=== PATIENT | female | born 1945 | race Caucasian/White ===

== ENCOUNTER 2017-06-24 14:24 | Emergency (ER) | payer MEDICARE, OTHER ==
[~2017-06-24] VITALS: Ht 162.6 cm; Wt 95.3 kg
[2017-06-24] MEDS ORDERED: ALBUTEROL SULF 0.083% NEB SOLN 3 ML NEB NEB STA (15:05)
[2017-06-24] MEDS ORDERED: PRADAXA75 MG (15:12)
[2017-06-24] MEDS ORDERED: AMBIEN10 MG PO (15:12)
[2017-06-24] MEDS ORDERED: AMIODARONE HCL200 MG (15:12)
[2017-06-24] MEDS ORDERED: FLOVENT HFA12 G1 IH (15:13)
[2017-06-24] MEDS ORDERED: LASIX40 MG PO (15:14)
[2017-06-24] MEDS ORDERED: LEXAPRO10 MG PO (15:14)
[2017-06-24] MEDS ORDERED: LOTENSIN20 MG (15:15)
[2017-06-24] MEDS ORDERED: LIPITOR20 MG (15:15)
[2017-06-24] MEDS ORDERED: ACETAMINOPHEN 325 MG TAB PO ONE (15:15)
[2017-06-24] MEDS ORDERED: MELATONIN3 M1 (15:22)
[2017-06-24] MEDS ORDERED: KLOR-CON M2020 MEQ (15:24)
[2017-06-24] MEDS ORDERED: METOLAZONE5 MG PO (15:24)
[2017-06-24] MEDS ORDERED: NEXIUM40 MG (15:26)
[2017-06-24] MEDS ORDERED: BENADRYL25 M1 (15:27)
[2017-06-24] MEDS ORDERED: SODIUM CHLORIDE 0.9% 500ML 500 ML IV ONE (15:30)
[2017-06-24] MEDS ORDERED: SODIUM CHLORIDE 0.9% 1000ML 1,000 ML IV SCH (16:00)
== END 2017-06-24 16:45 | disposition left against medical advice (07) ==
LOC: FSED 14:24
DX: R07.89 Other chest pain (principal); R05 Cough; R06.00 Dyspnea, unspecified; J20.8 Acute bronchitis due to other specified organisms; I10 Essential (primary) hypertension; I51.9 Heart disease, unspecified; I50.9 Heart failure, unspecified; Z95.0 Presence of cardiac pacemaker
CPT/HCPCS: 71020; 80053; 82553; 84484; 85025; 99282

== ENCOUNTER 2020-05-31 13:06 | Emergency (ER) | payer MEDICARE, OTHER ==
[~2020-05-31] VITALS: Ht 162.6 cm; Wt 97.5 kg
[~2020-05-31 13:06] MED LIST: AMBIEN10 MG PO; AMIODARONE HCL200 MG; BENADRYL25 M1; FLOVENT HFA12 G1 IH; KLOR-CON M2020 MEQ; LASIX40 MG PO; LEXAPRO10 MG PO; LIPITOR20 MG; LOTENSIN20 MG; MELATONIN3 M1; METOLAZONE5 MG PO; NEXIUM40 MG; PRADAXA75 MG
[2020-05-31] MEDS ORDERED: SILVER NITRATE SWABS TOP ONE (13:45)
[2020-05-31] MEDS ORDERED: SILVER NITRATE SWABS ONE ×2 (13:51→13:52)
== END 2020-05-31 14:26 | disposition home or self-care (01) ==
LOC: FSED 13:14
DX: R22.9 Localized swelling, mass and lump, unspecified (principal); K14.8 Other diseases of tongue; E78.00 Pure hypercholesterolemia, unspecified
CPT/HCPCS: 99282